=== PATIENT | female | born 1945 | race African-American/Black ===

== ENCOUNTER 2018-09-15 07:02 | Day surgery (SDC) | payer MEDICARE, MEDICAID ==
[~2018-09-15] VITALS: Ht 152.4 cm; Wt 65.3 kg
[2018-09-15] MEDS ORDERED: METF-816 MT (08:03)
[2018-09-15] MEDS ORDERED: APIX5TAB MT (08:03)
[2018-09-15] MEDS ORDERED: DRON400T MT (08:03)
[2018-09-15] MEDS ORDERED: CLON1PAT11 TP (08:03)
[2018-09-15] MEDS ORDERED: HYDR-4009 MT (08:03)
[2018-09-15 08:12] LABS: HEMATOCRIT 35.9 % (36.0-48.0); MEAN CORPUSCULAR HEMOGLOBIN 29.6 pg (28.0-32.0); MEAN CORPUSCULAR VOLUME 88.4 fL (81.0-99.0); PLATELET 211 x1000/uL (130-400); RED BLOOD CELL COUNT 4.06 mill/uL (4.2-5.4); RED CELL DISTRIBUTION WIDTH 15.1 % (11.6-14.6)
[2018-09-15 08:15] LABS: CHLORIDE 106 mEq/L (98-107)
[2018-09-15] MEDS ORDERED: IODIXANOL 320MG/ML 100 ML BOTTLE IV ONE (08:17)
[2018-09-15] MEDS ORDERED: LIDOCAINE HCL 1% 20ML VIAL (Pyxis) INJ ONE (08:17)
[2018-09-15 08:19] LABS: PARTIAL THROMBOPLASTIN TIME 29.9 sec (23.4-31.0); PROTHROMBIN TIME 10.2 sec (9.6-11.0)
[2018-09-15] MEDS ORDERED: FENTANYL CITRATE/PF 50MCG/ML 2ML VIAL ONE (08:28)
[2018-09-15] MEDS ORDERED: MIDAZOLAM HCL 2 MG/2 ML VIAL ONE (08:28)
[2018-09-15] MEDS ORDERED: IOHEXOL-300 100 ML BOTTLE ONE (08:41)
[2018-09-15] MEDS ORDERED: HYDROCODONE/ACETAMINOPHEN 5/325MG TABLET PO ONE (10:30)
[2018-09-15 10:41] VITALS: BP 131/60
== END 2018-09-15 15:30 | disposition home or self-care (01) ==
LOC: CCL 07:02
PROVIDERS: ATTEND Internal Medicine Cardiovascular Disease
DX: I70.248 Atherosclerosis of native arteries of left leg with ulceration of other part of lower leg (principal); L97.829 Non-pressure chronic ulcer of other part of left lower leg with unspecified severity; E78.2 Mixed hyperlipidemia; I10 Essential (primary) hypertension; E11.65 Type 2 diabetes mellitus with hyperglycemia; Z95.0 Presence of cardiac pacemaker
CPT/HCPCS: 36246; 36415; 75710; 80048; 82962; 85027; 85610; 85730; 99152; 99153; C1760; C1769; C1893; J1644; J2250; J3010; J3490; Q9967